=== PATIENT | female | born 1995 | race Hispanic/Latino ===

== ENCOUNTER 2022-11-20 15:34 | Emergency (ER) | payer BC ==
[~2022-11-20] VITALS: Ht 165.1 cm; Wt 99.8 kg
[2022-11-20 15:40] VITALS: BP 123/73
== END 2022-11-20 19:09 | disposition left against medical advice (07) ==
LOC: EDH 15:34
DX: R42 Dizziness and giddiness (principal); Z53.21 Procedure and treatment not carried out due to patient leaving prior to being seen by health care provider

== ENCOUNTER 2023-09-23 14:11 | Emergency (ER) | payer BC ==
[~2023-09-23] VITALS: Ht 165.1 cm; Wt 111.6 kg
[2023-09-23 14:28] VITALS: BP 151/83; PULSE 96; RESP 18; O2SAT 99
== END 2023-09-23 15:51 | disposition home or self-care (01) ==
LOC: EDH 14:11
DX: R04.0 Epistaxis (principal)
CPT/HCPCS: 99281